=== PATIENT | female | born 1995 | race Caucasian/White ===

== ENCOUNTER 2018-04-28 12:26 | Emergency (ER) | payer MEDICAID, OTHER ==
[2018-04-28] MEDS: ACETAMINOPHEN 325 MG TAB PO (15:59)
[2018-04-28 16:15] LABS: ADD MAN DIFF? NO
[2018-04-28 16:21] LABS: BASOPHILS % 0.2 % (0.0-2.0); EOSINOPHILS % 0.1 % (0.0-7.0); HEMATOCRIT 35.4 % (37.0-47.0); HEMOGLOBIN 11.6 g/dl (12.0-16.0); LYMPHOCYTES # 2.5 10^3/ul (0.8-2.9); LYMPHOCYTES % 14.1 % (15.0-51.0); MEAN CORPUSCULAR HEMOGLOBIN 29.4 pg (29.0-33.0); MEAN CORPUSCULAR HGB CONC 32.8 g/dl (32.0-37.0); MEAN CORPUSCULAR VOLUME 89.8 fl (82.0-101.0); MONOCYTES % 5.3 % (0.0-11.0); NEUTROPHIL # 14.3 10^3/ul (1.6-7.5); NEUTROPHILS % 79.6 % (39.0-77.0); PLATELET COUNT 234 10^3/UL (140-415); RED BLOOD COUNT 3.94 10^6/ul (4.20-5.40); RED CELL DISTRIBUTION WIDTH 12.8 % (11.5-14.5)
[2018-04-28 16:27] LABS: ADD UMIC YES; UR ASCORBIC ACID NEGATIVE (NEGATIVE); UR BACTERIA FEW /HPF (NONE SEEN); UR BILIRUBIN (Dip) NEGATIVE (NEGATIVE); UR BLOOD (Dip) 3+ mg/dL (NEGATIVE); UR CLARITY SLIGHTLY CLOUDY (CLEAR); UR COLOR YELLOW (YELLOW); UR GLUCOSE (Dip) NEGATIVE (NEGATIVE); UR KETONES (Dip) 2+ mg/dL (NEGATIVE); UR LEUKOCYTE ESTERASE (Dip) 2+ Leu/ul (NEGATIVE); UR MUCUS MODERATE /HPF (NONE SEEN); UR NITRITE (Dip) NEGATIVE (NEGATIVE); UR RBC > 182 /HPF (0-5); UR SPECIFIC GRAVITY (Dip) 1.016 (1.003-1.030); UR SQUAMOUS EPITHELIAL CELL FEW /HPF (FEW); UR TOTAL PROTEIN (Dip) NEGATIVE (NEGATIVE); UR UROBILINOGEN (Dip) 1+ mg/dL (NEGATIVE); UR WBC 113 /HPF (0-5)
[2018-04-28] MEDS: CEFTRIAXONE 250 MG INJ IM (18:55)
== END 2018-04-28 19:02 | disposition home or self-care (01) ==
LOC: FTE 19:02
DX: O20.9 Hemorrhage in early pregnancy, unspecified (principal); R10.2 Pelvic and perineal pain; Z3A.00 Weeks of gestation of pregnancy not specified
CPT/HCPCS: 36415; 76801; 81001; 84702; 85025; 86900; 86901; 96372; 99285-25

== ENCOUNTER 2018-04-28 22:49 | Observation (INO) | payer MEDICAID ==
[2018-04-28] MEDS: SOD CHLORIDE 0.9% 1,000 ML IV (23:10)
[2018-04-28 23:14] LABS: ADD MAN DIFF? NO
[2018-04-28 23:17] LABS: BASOPHIL # 0.1 10^3/ul (0.0-0.1); BASOPHILS % 0.3 % (0.0-2.0); EOSINOPHILS % 0.2 % (0.0-7.0); HEMATOCRIT 32.4 % (37.0-47.0); HEMOGLOBIN 10.9 g/dl (12.0-16.0); LYMPHOCYTES # 3.5 10^3/ul (0.8-2.9); LYMPHOCYTES % 20.7 % (15.0-51.0); MEAN CORPUSCULAR HEMOGLOBIN 29.9 pg (29.0-33.0); MEAN CORPUSCULAR HGB CONC 33.6 g/dl (32.0-37.0); MEAN CORPUSCULAR VOLUME 88.8 fl (82.0-101.0); MEAN PLATELET VOLUME 10.9 fl (7.4-10.4); MONOCYTE # 0.9 10^3/ul (0.3-0.9); MONOCYTES % 5.5 % (0.0-11.0); NEUTROPHIL # 12.4 10^3/ul (1.6-7.5); NEUTROPHILS % 72.7 % (39.0-77.0); PLATELET COUNT 237 10^3/UL (140-415); RED BLOOD COUNT 3.65 10^6/ul (4.20-5.40); RED CELL DISTRIBUTION WIDTH 12.7 % (11.5-14.5)
[2018-04-28 23:35] LABS: ANION GAP 14 (5-13); BLOOD UREA NITROGEN 8 mg/dl (7-20); CALCIUM 9.2 mg/dl (8.4-10.2); CARBON DIOXIDE 24 mmol/L (21-31); CHLORIDE 103 mmol/L (97-110); CREATININE 0.48 mg/dl (0.44-1.00); Estimated GFR > 60 mL/min (>60); GLUCOSE 104 mg/dl (70-220); POTASSIUM 3.4 mmol/L (3.5-5.1); SODIUM 141 mmol/L (135-144)
[2018-04-28 23:37] LABS: INR 1.04; PROTIME 13.7 Sec (11.9-14.9); PT RATIO 1.1
[2018-04-28 23:38] LABS: PARTIAL THROMBOPLASTIN TIME 28.3 Sec (23.0-35.0)
[2018-04-29] MEDS ORDERED: ACETAMINOPHEN 325 MG TAB PO
[2018-04-29] MEDS: HYDROmorphONE 0.5 MG/0.5 ML SYG IV (01:32)
[2018-04-29] MEDS: ONDANSETRON 4 MG INJ IV (01:33)
[2018-04-29] MEDS ORDERED: CEFAZOLIN 1 GM INJ (05:49)
[2018-04-29] MEDS ORDERED: PROPOFOL 20 ML (05:49)
[2018-04-29] MEDS ORDERED: FENTAnyl 50 MCG/ML VIAL (05:50)
[2018-04-29] MEDS ORDERED: MIDAZOLAM 1 MG/ML 2 ML INJ (05:50)
[2018-04-29] MEDS ORDERED: KETOROLAC 30 MG INJ (05:59)
[2018-04-29] MEDS ORDERED: DEXAMETHASONE 4 MG/ML 5 ML INJ (05:59)
[2018-04-29] MEDS ORDERED: ONDANSETRON 4 MG INJ (05:59)
[2018-04-29] MEDS ORDERED: METOCLOPRAMIDE 10 MG INJ (05:59)
[2018-04-29] MEDS ORDERED: SEVOFLURANE 15 MIN (05:59)
[2018-04-29] MEDS ORDERED: MEPERIDINE 25 MG INJ IV (06:00)
[2018-04-29] MEDS ORDERED: FENTAnyl 50 MCG/ML VIAL IV ×3 (06:00)
[2018-04-29] MEDS ORDERED: ONDANSETRON 4 MG INJ IV ×2 (06:00)
[2018-04-29] MEDS ORDERED: METOCLOPRAMIDE 10 MG INJ IV (06:00)
[2018-04-29] MEDS ORDERED: EPHEDrine SULFATE 50 MG/5 ML SYG IV (06:00)
[2018-04-29] MEDS ORDERED: LABETALOL HCL 20MG INJ IV (06:00)
[2018-04-29] MEDS ORDERED: HYDROmorphONE 1 MG/5 ML IV SYRINGE IV ×3 (06:00)
[2018-04-29] MEDS ORDERED: DIPHENHYDRAMINE 50 MG INJ IV (06:00)
[2018-04-29] MEDS ORDERED: PHENYLephrine (100 MCG/ML) 5ML SYG (06:01)
[2018-04-29] MEDS ORDERED: OXYTOCIN 10 UNIT INJ (06:09)
== END 2018-04-29 07:47 | disposition home or self-care (01) ==
LOC: REC 23:43 → E/R 22:49 → REC 23:43
DX: O03.4 Incomplete spontaneous abortion without complication (principal)
CPT/HCPCS: 36415; 76801; 76817; 80048; 84702; 85025; 85610; 85730; 86850; 86900; 86901; 88305; 99217; 99285-25